=== PATIENT | male | born 1955 | race Caucasian/White ===

== ENCOUNTER 2019-04-12 09:35 | Emergency (ER) | payer OTHER ==
[~2019-04-12] VITALS: Ht 180.3 cm; Wt 80.7 kg
--- NOTE | 2019-04-12 09:37 | NUR ---
[id number] FRM HOME, UNABLE TO URINATE AND HAVE BM SINCE 0200, TO ER BED 6, HOOKED TO MONITOR, CHANGED TO GOWN, AWAITING MD FERGUSON.
[2019-04-12] MEDS ORDERED: LIDOCAINE 2% JEL UROJET 10 ML MM ONE (10:00)
--- NOTE | 2019-04-12 10:00 | NUR ---
DR HUGHES AT BEDSIDE
[2019-04-12 10:27] LABS: BASOPHILS # (AUTO) 0.1 /CMM (0.0-0.2); BASOPHILS % (AUTO) 0.5 % (0.0-2.0); HEMATOCRIT 38 % (39-51); HEMOGLOBIN 12.2 g/dL (13.5-17.5); LYMPHOCYTES # (AUTO) 0.8 /CMM (0.8-4.8); LYMPHOCYTES % (AUTO) 6.5 % (20.0-44.0); MEAN CORPUSCULAR HGB CONC 32 g/dl (31.0-36.0); MEAN CORPUSCULAR VOLUME 61 fL (80-96); MONOCYTES # (AUTO) 0.5 /CMM (0.1-1.30); MONOCYTES % (AUTO) 3.7 % (2.0-12.0); NEUTROPHILS % (AUTO) 89.3 % (43.0-81.0); PLATELET COUNT (AUTO) 153 /CMM (150-450); RED BLOOD CELL COUNT(AUTO) 6.25 MIL/uL (4.5-6.0); WHITE BLOOD COUNT (AUTO) 12.3 K/uL (4.3-11.0)
[2019-04-12 10:31] LABS: CALCIUM, SERUM 8.9 mg/dL (8.5-10.1)
[2019-04-12 10:36] LABS: ALBUMIN 4.1 g/dL (3.4-5.0); BILIRUBIN,DIRECT 0.2 mg/dL (0.0-0.2); BILIRUBIN,TOTAL 0.5 mg/dL (0.2-1.0); TOTAL PROTEIN, SERUM 7.1 g/dL (6.4-8.2)
[2019-04-12 10:57] LABS: BAND % (MANUAL) 2 % (0.0-5.0); LYMPHOCYTES % (MANUAL) 4 % (16-48); NEUTROPHILS % (MANUAL) 88 (42-76)
[2019-04-12 10:58] LABS: MONOCYTES % (MANUAL) 6 % (0-11.0)
--- NOTE | 2019-04-12 12:46 | NUR ---
Patient discharged to home in stable condition. Written and verbal after care instructions given. Patient verbalizes understanding of instruction.IV removed. Catheter intact and site benign. Pressure and 4x4 applied to site. No bleeding noted.
[2019-04-12 12:54] VITALS: BP 127/75
== END 2019-04-12 12:55 | disposition home or self-care (01) ==
LOC: ER 09:41
DX: R33.9 Retention of urine, unspecified (principal); K59.00 Constipation, unspecified; N40.0 Benign prostatic hyperplasia without lower urinary tract symptoms; N32.89 Other specified disorders of bladder; R73.9 Hyperglycemia, unspecified
CPT/HCPCS: 36415; 80048-TC; 80076-TC; 83690-TC; 85025-TC